=== PATIENT | female | born 1985 | race African-American/Black ===

== ENCOUNTER 2023-10-29 12:53 | Inpatient (IN) | payer OTHER, SELFPAY ==
[2023-10-29 13:20] VITALS: BP 137/99; PULSE 89; RESP 20; TEMP 36.8; O2SAT 99
--- NOTE | 2023-10-29 13:21 | HO.PM.IMCN ---
History of Present Illness Data of Consult Service Date: 10/29/23 Requesting physician: Jules Le Primary Care Provider: None Physician HPI Reason for consult: medical h&p 38 renato old female with history of pseudotumor cerebri, prediabetes, schizoaffective disorder bipolar type, htn, hx cva, cardiomegaly, who is morbidly obese and a current 1/2-1ppd cigarette smoker admitted to psychiatry with consult placed to hospitalist service for medical H&P. Has pseudotumor cerebri and follows outpt with Dr. Mcdermott in neurology. It does not appear she has been seen by neuro in over 1 year. She reports a constant headache in the occipital area without radiation and has long standing blurred vision. Has been told she has papilledema. Per review of neuro notes, has not been able to toelrate diamox in the past for intracranial pressures. No double vision or loss of vision. No acute changes in symptoms. The patient is not the best historian and requires redirection, very rapid speech, difficulty following commands. She doess smoke 1/2-1ppd cigarettes but states she bradley snot crave ncicotine. Also reports previous inhaled crack cocaine and heroin use. Denies IVDA. Review of Systems Review of Systems: General: No fevers, malaise, unintentional weight loss HEENT: +blurred vision, +pailledema. No diplopia. No sore throat, nasal congestion, rhinorrhea, sinus pain, ear pain Cardiovascular: No chest pain, palpitations, or leg edema Respiratory: No shortness of breath, wheezing, cough GI: No abdominal pain, nausea, vomiting, diarrhea, constipation, melena, hematochezia : No dysuria, hematuria, increased urinary frequency, decreased urinary output MSK: No myalgia, back pain Neuro: No weakness, paresthesias. +headache Skin: No rashes or lesions [facility] Medical History Polysubstance abuse Cigarette smoker HTN (hypertension) Morbid obesity Intracranial hypertension Papilledema Pseudotumor cerebri Social History Advance Directives: No Advance Directives Information Provided: No Meds Allergies Allergy/AdvReac Type Severity Reaction Status Date / Time Sulfa (Sulfonamide Allergy Unknown Unverified 10/28/23 21:28 Antibiotics) Active Medications: Current Medications Acetaminophen (Acetaminophen 325 Mg Tablet) 650 mg PO Q6H PRN PRN Reason: Headache/Pain Mild Scale (1-3) Al Hydroxide/Mg Hydroxide (Magnesium Hydrox/Alum Hydrox 30 Ml Oral.Susp) 30 ml PO Q6H PRN PRN Reason: Heartburn/Nausea Hydroxyzine HCl (Hydroxyzine Hcl 25 Mg Tablet) 25 mg PO Q6H PRN PRN Reason: Anxiety Magnesium Hydroxide (Milk Of Magnesia 30 Ml Oral.Susp) 30 ml PO DAILY PRN PRN Reason: Constipation Nicotine (Nicotine 21 Mg Patch.Td24) 21 mg TRANSDERMA DAILY PRN PRN Reason: smoking cessation Nicotine Polacrilex (Nicotine Polacrilex 2 Mg Gum) 4 mg BUCCAL Q2H PRN PRN Reason: Nicotine Cravings Olanzapine (Olanzapine 5 Mg Tablet) 5 mg PO TID PRN PRN Reason: agitation Trazodone HCl (Trazodone Hcl 50 Mg Tablet) 50 mg PO BEDTIME MRX1 PRN PRN Reason: Insomnia Physical Exam Vital Signs and Narrative: Constitutional - Awake and Alert, No apparent distress Eyes - PERRLA, EOMI. No papilledema noted on fundoscopic exam Cardiovascular - S1S2, RRR, No edema Respiratory - Normal lung expansion, Normal respiratory effort, No respiratory distress, CTA bilaterally Gastrointestinal - NT / ND; +BS; No rebound or guarding Extremities - no calf tenderness bilaterally, no swelling Skin - Warm/Dry Neurological - Alert & oriented x3, CN II-XII in tact, difficulty following commands but able to be redirected, 5/5 strength BUE and BLE Psychological - Appropriate affect Assessment and Plan (1) Routine medical exam: Status: Acute Plan 38 year old female with history of pseudotumor cerebri, prediabetes, schizoaffective disorder bipolar type, htn, hx cva, cardiomegaly, who is morbidly obese and a current 1/2-1ppd cigarette smoker admitted to psychiatry with consult placed to hospitalist service for medical H&P. #Schizoaffectvie disorder, bipolar type -plan per psychiatry #Pseudotumor cerebri -appears stable at this time -has chronic headache and blurred vision R eye, no acute change in symptoms. No papilledema on exam -Reviewed [facility] neuro records 07/01: -continue lasix 80mg daily and topomax 25mg BID to help manage/prevent headaches -avoid prn otc meds to no more than 3 times per week to avoid rebound headaches -limit caffeine- no more than 2 cups daily -ensure quality sleep -she is overdue for outpt follow up with neurology (Dr. Mcdermott) and needs appt scheduled herbie. She needs to be seen by ophthamlology -For any worsening symptoms, RECOMMEND NEURO CONSULT #HTN -monitor blood pressures closely, goal <140/90 -continue amlodipine 10mg, losartan 100mg, chlorthalidone 25mg, furosemide 80mg -Monitor lytes #Hypokalemia -K 3.2 while in the ED, repleted -likely r/t diuretic use. -Follow lytes, may need daily K repletion #Morbid obesity -weight loss efforts encouraged #Cigarette smoker -Would recommend gum/lozenges over patches as pt wants to quit and states does not crave nicotine -cessation counseling Thank you for allowing me to participate in this consult. Signing off at this time. Please do not hesitate to call for further questions.
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
[2023-10-29 15:58] VITALS: BMI 51.1
[2023-10-29] MEDS: LORazepam 1 MG TABLET 2 MG PO (16:24)
[2023-10-29] MEDS: OLANZapine ODT 10 MG TAB.RAPDIS 20 MG TRANSLINGU (16:25)
[2023-10-29] MEDS: Acetaminophen 325 MG TABLET 650 MG PO (16:31)
[2023-10-29] MEDS: Loperamide HCl 2 MG CAPSULE PO (17:47)
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
[2023-10-29 23:20] VITALS: RESP 18
[2023-10-30 07:50] VITALS: BP 166/106; PULSE 82; RESP 20; TEMP 36.2; O2SAT 100
[2023-10-30 07:51] LABS: Alanine Aminotransferase 19 U/L (0-31); Albumin Level 3.7 g/dL (3.5-5.0); Alkaline Phosphatase 97 U/L (39-117); Anion Gap 13 (12-20); Aspartate Amino Transferase 19 U/L (5-31); Bilirubin Total 0.3 mg/dL (0.0-1.0); Blood Urea Nitrogen 22 mg/dL (9-16); Calcium 9.5 mg/dL (8.4-10.2); Carbon Dioxide 31 mmol/L (22-29); Chloride 101 mmol/L (96-108); Creatinine Clr Calc Pharmacy 97.4; Estimated Glomerular Filt Rate 50; Glucose Fasting 111 mg/dL (60-99); Potassium 3.9 mmol/L (3.3-5.1); Sodium 141 mmol/L (135-145); Total Protein 8.4 g/dL (6.5-8.0)
[2023-10-30] MEDS: amLODIPine Besylate 10 MG TABLET PO (08:33)
[2023-10-30] MEDS: HaloperidoL 5 MG TABLET PO ×2 (08:33→20:36)
[2023-10-30] MEDS: OLANZapine 10 MG TABLET PO (08:53)
[2023-10-30] MEDS: Acetaminophen 325 MG TABLET 650 MG PO ×2 (08:54→18:53)
[2023-10-30] MEDS: LORazepam 1 MG TABLET 2 MG PO (10:37)
--- NOTE | 2023-10-30 13:17 | P.PNPSI_ITS ---
Subjective Subjective Date of Service: 10/30/23 Reason For Visit: Schizophrenia spectrum disorder Subjective Notes: Conditional Voluntary Interim History: Pt slept most of the night. She was sleeping by the time this resume writer approached her several times in the morning. At this moment, it is felt that sleeping may be more therapeutic as she has not slept for several days. Medication Compliance: Yes Review of Systems Review of Systems General: No fevers, malaise, unintentional weight loss HEENT: +blurred vision, +pailledema. No diplopia. No sore throat, nasal congestion, rhinorrhea, sinus pain, ear pain Cardiovascular: No chest pain, palpitations, or leg edema Respiratory: No shortness of breath, wheezing, cough GI: No abdominal pain, nausea, vomiting, diarrhea, constipation, melena, hematochezia : No dysuria, hematuria, increased urinary frequency, decreased urinary output MSK: No myalgia, back pain Neuro: No weakness, paresthesias. +headache Skin: No rashes or lesions Mental Status Exam Mental Status Exam Narrative: Pt asleep. Diagnostics Vital Signs (24Hr): Vital Signs - 24 hr 10/29/23 13:20 10/29/23 23:20 10/30/23 07:50 Temperature 98.3 F 97.2 F Pulse Rate 89 82 Respiratory Rate 20 18 20 Blood Pressure 137/99 H 166/106 H Pulse Oximetry 99 100 Oxygen Delivery Method Room Air Room Air BMI result Body Mass Index 51.1 Labs 10/30/23 07:17 Labs: Laboratory Results - last 48 hr 10/30/23 07:17 Sodium 141 Potassium 3.9 Chloride 101 Carbon Dioxide 31 H Anion Gap 13 BUN 22 H Creatinine 1.20 Estim Creat Clear Calc 97.4 Estimated GFR 50 Fasting Glucose 111 H Calcium 9.5 Total Bilirubin 0.3 AST 19 ALT 19 Alkaline Phosphatase 97 Total Protein 8.4 H Albumin 3.7 Medications Medications Current Medications Acetaminophen (Acetaminophen 325 Mg Tablet) 650 mg PO Q6H PRN PRN Reason: Headache/Pain Mild Scale (1-3) Last Admin: 10/30/23 08:54 Dose: 650 mg Al Hydroxide/Mg Hydroxide (Magnesium Hydrox/Alum Hydrox 30 Ml Oral.Susp) 30 ml PO Q6H PRN PRN Reason: Heartburn/Nausea Amlodipine Besylate (Amlodipine Besylate 10 Mg Tablet) 10 mg PO DAILY VERNON; Protocol Last Admin: 10/30/23 08:33 Dose: 10 mg Haloperidol (Haloperidol 5 Mg Tablet) 5 mg PO BID VERNON Last Admin: 10/30/23 08:33 Dose: 5 mg Hydroxyzine HCl (Hydroxyzine Hcl 25 Mg Tablet) 25 mg PO Q6H PRN PRN Reason: Anxiety Loperamide HCl (Loperamide Hcl 2 Mg Capsule) 2 mg PO Q6H PRN PRN Reason: Loose Stool Last Admin: 10/29/23 17:47 Dose: 2 mg Lorazepam (Lorazepam 1 Mg Tablet) 2 mg PO Q6H PRN PRN Reason: severe anxiety/agitation Last Admin: 10/30/23 10:37 Dose: 2 mg Magnesium Hydroxide (Milk Of Magnesia 30 Ml Oral.Susp) 30 ml PO DAILY PRN PRN Reason: Constipation Nicotine (Nicotine 21 Mg Patch.Td24) 21 mg TRANSDERMA DAILY PRN PRN Reason: smoking cessation Nicotine Polacrilex (Nicotine Polacrilex 2 Mg Gum) 4 mg BUCCAL Q2H PRN PRN Reason: Nicotine Cravings Olanzapine (Olanzapine 10 Mg Tablet) 10 mg PO Q6H PRN PRN Reason: agitation Last Admin: 10/30/23 08:53 Dose: 10 mg Trazodone HCl (Trazodone Hcl 50 Mg Tablet) 50 mg PO BEDTIME PRN PRN Reason: Insomnia Allergies Allergies Allergy/AdvReac Type Severity Reaction Status Date / Time Sulfa (Sulfonamide Allergy Unknown Unverified 10/28/23 21:28 Antibiotics) Assessment & Plan Assessment & Plan (1) Schizoaffective disorder: Status: Acute Code(s): F25.9 - Schizoaffective disorder, unspecified Plan Ms. Chatman is a 38 year-old woman with hx of schizoaffective disorder, bipolar type who self presented to [facility] ED reporting increase paranoia towards neighbors, hearing voices and not sleeping. Utox was negative. She had been on abilify which pt reports not effective. We discussed risks, benefits and alternative treatment options. We discussed combination of mood stabilizer with antipsychotic. She agrees to try low dose haldol. Renal function with some degree of impairment- caution about starting lithium. She declined depakote. May consider Tegretol- pt wants to think about it. PLAN 1. Admit to M3, CV, 15 minutes checks for safety 2. Start haldol 5mg po BID 3. PRN olanzapine 10mg po q6h for agitation with ativan 2mg po q6h prn--> may decrease as pt more stable 4. Obtain collateral information 5. Aftercare planning. Reason for continued inpatient stay Substantial Risk for: inability to function Time Spent With Patient Time: Total time managing care of this patient today ____ minutes.
[2023-10-30 19:30] VITALS: BP 176/113; PULSE 91; RESP 20; TEMP 36.8; O2SAT 98
[2023-10-30 20:31] LABS: B Type Natriuretic Peptide < 10 pg/mL (<100)
[2023-10-30] MEDS: Losartan Potassium 50 MG TABLET 100 MG PO (20:35)
[2023-10-31] MEDS: Nicotine 21 MG PATCH.TD24 TRANSDERMA ×2 (03:41→11:08)
[2023-10-31 07:30] VITALS: BP 196/107; PULSE 94; RESP 16; TEMP 36.8; O2SAT 97
[2023-10-31 08:10] VITALS: BP 162/106
[2023-10-31] MEDS: amLODIPine Besylate 10 MG TABLET PO (08:13)
[2023-10-31] MEDS: HaloperidoL 5 MG TABLET PO ×2 (08:13→21:38)
[2023-10-31] MEDS: Acetaminophen 325 MG TABLET 650 MG PO ×2 (08:14→22:15)
[2023-10-31 11:20] VITALS: BP 182/109; PULSE 82
[2023-10-31] MEDS: hydroCHLOROthiazide 25 MG TABLET PO (11:22)
[2023-10-31] MEDS: QUEtiapine Fumarate 50 MG TABLET PO (11:22)
[2023-10-31] MEDS: metFORMIN HCl ER 500 MG TAB.ER.24H PO (11:22)
[2023-10-31] MEDS: Topiramate 25 MG TABLET PO ×2 (11:23→21:38)
[2023-10-31] MEDS: Furosemide 40 MG TABLET 80 MG PO (11:23)
[2023-10-31] MEDS: hydrOXYzine HCL 50 MG TABLET PO (11:23)
[2023-10-31] MEDS: carBAMazepine ER 100 MG TAB.ER.12H PO ×2 (11:33→21:37)
[2023-10-31 12:29] VITALS: BP 154/97; PULSE 84
--- NOTE | 2023-10-31 15:06 | HO.PSYCHPN ---
Subjective Subjective Date of Service: 10/31/23 Reason For Visit: Schizophrenia spectrum disorder Interim History: calm, cooperative. acknowledges sowmya. agreeable to start tegretol. med rec reviewed, meds prescribed. per staff, poor sleep LATHE MACHINIST, has been sleeping a lot since arrival. taking meds and meals. h/o chronic hypokalemia. Mental Status Exam Mental Status Exam Narrative: Appearance: scrubs, adequately groomed Behavior: hyperactive but engageable Speech: hyperverbal, redirectable, spontaneous TP: tangential TC: no delusions or paranoia expressed Mood: not assessed Affect: normo-intense, non-labile SI: none expressed HI: none expressed VH/AH: none expressed Insight/judgment: fair x 2 Memory/cog: alert, oriented x 3. not formally tested. Diagnostics Vital Signs (24Hr): Vital Signs - 24 hr 10/30/23 19:30 10/31/23 07:30 10/31/23 08:10 Temperature 98.2 F 98.3 F Pulse Rate 91 94 Respiratory Rate 20 16 Blood Pressure 176/113 H 196/107 H 162/106 H Pulse Oximetry 98 97 Oxygen Delivery Method Room Air Room Air 10/31/23 11:20 10/31/23 12:29 Temperature Pulse Rate 82 84 Respiratory Rate Blood Pressure 182/109 H 154/97 H Pulse Oximetry Oxygen Delivery Method BMI result Body Mass Index 51.1 Labs 10/30/23 07:17 Labs: Laboratory Results - last 48 hr 10/30/23 10/30/23 07:17 20:06 Sodium 141 Potassium 3.9 Chloride 101 Carbon Dioxide 31 H Anion Gap 13 BUN 22 H Creatinine 1.20 Estim Creat Clear Calc 97.4 Estimated GFR 50 Fasting Glucose 111 H Calcium 9.5 Total Bilirubin 0.3 AST 19 ALT 19 Alkaline Phosphatase 97 B-Natriuretic Peptide < 10 Total Protein 8.4 H Albumin 3.7 Medications Medications Current Medications Acetaminophen (Acetaminophen 325 Mg Tablet) 650 mg PO Q6H PRN PRN Reason: Headache/Pain Mild Scale (1-3) Last Admin: 10/31/23 08:14 Dose: 650 mg Al Hydroxide/Mg Hydroxide (Magnesium Hydrox/Alum Hydrox 30 Ml Oral.Susp) 30 ml PO Q6H PRN PRN Reason: Heartburn/Nausea Amlodipine Besylate (Amlodipine Besylate 10 Mg Tablet) 10 mg PO DAILY VERNON; Protocol Last Admin: 10/31/23 08:13 Dose: 10 mg Benztropine Mesylate (Benztropine Mesylate 1 Mg Tablet) 1 mg PO BEDTIME PRN PRN Reason: muscle twitching Carbamazepine (Carbamazepine Er 100 Mg Tab.Er.12h) 100 mg PO BID [facility] Last Admin: 10/31/23 11:33 Dose: 100 mg Furosemide (Furosemide 40 Mg Tablet) 80 mg PO DAILY VERNON; Protocol Last Admin: 10/31/23 11:23 Dose: 80 mg Haloperidol (Haloperidol 5 Mg Tablet) 5 mg PO BID VERNON Last Admin: 10/31/23 08:13 Dose: 5 mg Hydrochlorothiazide (Hydrochlorothiazide 25 Mg Tablet) 25 mg PO DAILY [facility] Last Admin: 10/31/23 11:22 Dose: 25 mg Hydroxyzine HCl (Hydroxyzine Hcl 25 Mg Tablet) 25 mg PO Q6H PRN PRN Reason: Anxiety Hydroxyzine HCl (Hydroxyzine Hcl 50 Mg Tablet) 100 mg PO BEDTIME VERNON Hydroxyzine HCl (Hydroxyzine Hcl 50 Mg Tablet) 50 mg PO DAILY [facility] Last Admin: 10/31/23 11:23 Dose: 50 mg Loperamide HCl (Loperamide Hcl 2 Mg Capsule) 2 mg PO Q6H PRN PRN Reason: Loose Stool Last Admin: 10/29/23 17:47 Dose: 2 mg Lorazepam (Lorazepam 1 Mg Tablet) 2 mg PO Q6H PRN PRN Reason: severe anxiety/agitation Last Admin: 10/30/23 10:37 Dose: 2 mg Losartan Potassium (Losartan Potassium 50 Mg Tablet) 100 mg PO BEDTIME VERNON; Protocol Last Admin: 10/30/23 20:35 Dose: 100 mg Magnesium Hydroxide (Milk Of Magnesia 30 Ml Oral.Susp) 30 ml PO DAILY PRN PRN Reason: Constipation Metformin HCl (Metformin Hcl Er 500 Mg Tab.Er.24h) 500 mg PO DAILY [facility] Last Admin: 10/31/23 11:22 Dose: 500 mg Multi-Ingred Cream/Lotion/Oil/Oint (Mineral Oil/Petrolatum,White 106 Gm Tube) 1 appl TOPICAL BEDTIME VERNON; Protocol Nicotine (Nicotine 21 Mg Patch.Td24) 21 mg TRANSDERMA DAILY PRN PRN Reason: smoking cessation Last Admin: 10/31/23 11:08 Dose: 21 mg Nicotine Polacrilex (Nicotine Polacrilex 2 Mg Gum) 4 mg BUCCAL Q2H PRN PRN Reason: Nicotine Cravings Olanzapine (Olanzapine 10 Mg Tablet) 10 mg PO Q6H PRN PRN Reason: agitation Last Admin: 10/30/23 08:53 Dose: 10 mg Quetiapine Fumarate (Quetiapine Fumarate 50 Mg Tablet) 50 mg PO DAILY [facility] Last Admin: 10/31/23 11:22 Dose: 50 mg Quetiapine Fumarate (Quetiapine Fumarate 400 Mg Tablet) 400 mg PO BEDTIME [facility] Topiramate (Topiramate 25 Mg Tablet) 25 mg PO BID [facility] Last Admin: 10/31/23 11:23 Dose: 25 mg Trazodone HCl (Trazodone Hcl 50 Mg Tablet) 50 mg PO BEDTIME PRN PRN Reason: Insomnia Allergies Allergies Allergy/AdvReac Type Severity Reaction Status Date / Time Sulfa (Sulfonamide Allergy Unknown Unverified 10/28/23 21:28 Antibiotics) Assessment & Plan Assessment & Plan (1) Schizoaffective disorder: Status: Acute Code(s): F25.9 - Schizoaffective disorder, unspecified Plan Ms. Chatman is a 38 year-old woman with hx of schizoaffective disorder, bipolar type who self presented to [facility] ED reporting increase paranoia towards neighbors, hearing voices and not sleeping. Utox was negative. She had been on abilify which pt reports not effective. We discussed risks, benefits and alternative treatment options. We discussed combination of mood stabilizer with antipsychotic. She agrees to try low dose haldol. Renal function with some degree of impairment- caution about starting lithium. She declined depakote. May consider Tegretol- pt wants to think about it. PLAN 1. Admit to M3, CV, 15 minutes checks for safety 2. Start haldol 5mg po BID 3. PRN olanzapine 10mg po q6h for agitation with ativan 2mg po q6h prn--> may decrease as pt more stable 4. Obtain collateral information 5. Aftercare planning. 10/31: less labile/pressured/loud than day of admission. agreeable to trial of tegretol, will start today at 100 BID, as seroquel likely to lead to increased serum levels of tegretol. will also have to watch for antipsychotic efficacy, as tegretol will lead to much reduced serum levels of seroquel. may need to transition over to haldol or olanzapine entirely. Reason for continued inpatient stay Substantial Risk for: inability to function and rapid decompensation Time Spent With Patient Time: Total time managing care of this patient today __25__ minutes.
[2023-10-31] MEDS: hydrOXYzine HCL 25 MG TABLET PO (16:40)
[2023-10-31] MEDS: Loperamide HCl 2 MG CAPSULE PO (17:24)
[2023-10-31 19:20] VITALS: PULSE 100; RESP 16; TEMP 37.2
[2023-10-31 21:30] VITALS: BP 139/85; PULSE 75; RESP 16; TEMP 36.9; O2SAT 94
[2023-10-31] MEDS: hydrOXYzine HCL 50 MG TABLET 100 MG PO (21:37)
[2023-10-31] MEDS: Losartan Potassium 50 MG TABLET 100 MG PO (21:37)
[2023-10-31] MEDS: QUEtiapine Fumarate 400 MG TABLET PO (21:37)
[2023-10-31] MEDS: LORazepam 1 MG TABLET 2 MG PO (22:16)
[2023-11-01] MEDS: carBAMazepine ER 100 MG TAB.ER.12H PO ×2 (08:34→21:46)
[2023-11-01] MEDS: hydroCHLOROthiazide 25 MG TABLET PO (08:35)
[2023-11-01] MEDS: metFORMIN HCl ER 500 MG TAB.ER.24H PO (08:35)
[2023-11-01] MEDS: amLODIPine Besylate 10 MG TABLET PO (08:35)
[2023-11-01] MEDS: Furosemide 40 MG TABLET 80 MG PO (08:35)
[2023-11-01] MEDS: Topiramate 25 MG TABLET PO ×2 (08:36→21:46)
[2023-11-01] MEDS: HaloperidoL 5 MG TABLET PO ×2 (08:36→21:45)
[2023-11-01] MEDS: QUEtiapine Fumarate 50 MG TABLET PO (08:36)
[2023-11-01] MEDS: hydrOXYzine HCL 50 MG TABLET PO (08:37)
[2023-11-01 09:38] VITALS: BP 139/92; PULSE 72; RESP 18; TEMP 36.6; O2SAT 100
--- NOTE | 2023-11-01 14:44 | PC.NURSE ---
Submitted 3 day notice, up on Tuesday11/04/22. Treatment team notified.
--- NOTE | 2023-11-01 15:12 | P.PNPSI_ITS ---
Subjective Subjective Date of Service: 11/01/23 Reason For Visit: Schizophrenia spectrum disorder Interim History: appearing quite sedated today. rousable to voice. no complaints or requests. per staff, dep 5 anx 10. no groups. submitted 3-day notice. Mental Status Exam Mental Status Exam Narrative: Appearance: scrubs, adequately groomed Behavior: somnolent Speech: slowed, sparse TP: linear in brief interaction TC: no delusions or paranoia expressed Mood: drowsy Affect: hypo-intense, non-labile SI: none expressed HI: none expressed VH/AH: none expressed Insight/judgment: fair x 2 Memory/cog: alert, oriented x 3. not formally tested. Diagnostics Vital Signs (24Hr): Vital Signs - 24 hr 10/31/23 19:20 10/31/23 21:30 11/01/23 09:38 Temperature 99.0 F 98.4 F 97.8 F Pulse Rate 100 75 72 Respiratory Rate 16 16 18 Blood Pressure 139/85 139/92 H Pulse Oximetry 94 100 Oxygen Delivery Method Room Air Room Air BMI result Body Mass Index 51.1 Labs 10/30/23 07:17 Labs: Laboratory Results - last 48 hr 10/30/23 20:06 B-Natriuretic Peptide < 10 Medications Medications Current Medications Acetaminophen (Acetaminophen 325 Mg Tablet) 650 mg PO Q6H PRN PRN Reason: Headache/Pain Mild Scale (1-3) Last Admin: 10/31/23 22:15 Dose: 650 mg Al Hydroxide/Mg Hydroxide (Magnesium Hydrox/Alum Hydrox 30 Ml Oral.Susp) 30 ml PO Q6H PRN PRN Reason: Heartburn/Nausea Amlodipine Besylate (Amlodipine Besylate 10 Mg Tablet) 10 mg PO DAILY [facility]; Protocol Last Admin: 11/01/23 08:35 Dose: 10 mg Benztropine Mesylate (Benztropine Mesylate 1 Mg Tablet) 1 mg PO BEDTIME PRN PRN Reason: muscle twitching Carbamazepine (Carbamazepine Er 100 Mg Tab.Er.12h) 100 mg PO BID [facility] Last Admin: 11/01/23 08:34 Dose: 100 mg Furosemide (Furosemide 40 Mg Tablet) 80 mg PO DAILY [facility]; Protocol Last Admin: 11/01/23 08:35 Dose: 80 mg Haloperidol (Haloperidol 5 Mg Tablet) 5 mg PO BID [facility] Last Admin: 11/01/23 08:36 Dose: 5 mg Hydrochlorothiazide (Hydrochlorothiazide 25 Mg Tablet) 25 mg PO DAILY [facility] Last Admin: 11/01/23 08:35 Dose: 25 mg Hydroxyzine HCl (Hydroxyzine Hcl 25 Mg Tablet) 25 mg PO Q6H PRN PRN Reason: Anxiety Last Admin: 10/31/23 16:40 Dose: 25 mg Hydroxyzine HCl (Hydroxyzine Hcl 50 Mg Tablet) 100 mg PO BEDTIME [facility] Last Admin: 10/31/23 21:37 Dose: 100 mg Hydroxyzine HCl (Hydroxyzine Hcl 50 Mg Tablet) 50 mg PO DAILY [facility] Last Admin: 11/01/23 08:37 Dose: 50 mg Loperamide HCl (Loperamide Hcl 2 Mg Capsule) 2 mg PO Q6H PRN PRN Reason: Loose Stool Last Admin: 10/31/23 17:24 Dose: 2 mg Lorazepam (Lorazepam 1 Mg Tablet) 2 mg PO Q6H PRN PRN Reason: severe anxiety/agitation Last Admin: 10/31/23 22:16 Dose: 2 mg Losartan Potassium (Losartan Potassium 50 Mg Tablet) 100 mg PO BEDTIME [facility]; Protocol Last Admin: 10/31/23 21:37 Dose: 100 mg Magnesium Hydroxide (Milk Of Magnesia 30 Ml Oral.Susp) 30 ml PO DAILY PRN PRN Reason: Constipation Metformin HCl (Metformin Hcl Er 500 Mg Tab.Er.24h) 500 mg PO DAILY [facility] Last Admin: 11/01/23 08:35 Dose: 500 mg Multi-Ingred Cream/Lotion/Oil/Oint (Mineral Oil/Petrolatum,White 106 Gm Tube) 1 appl TOPICAL BEDTIME [facility]; Protocol Last Admin: 10/31/23 21:41 Dose: Not Given Nicotine (Nicotine 21 Mg Patch.Td24) 21 mg TRANSDERMA DAILY PRN PRN Reason: smoking cessation Last Admin: 10/31/23 11:08 Dose: 21 mg Nicotine Polacrilex (Nicotine Polacrilex 2 Mg Gum) 4 mg BUCCAL Q2H PRN PRN Reason: Nicotine Cravings Olanzapine (Olanzapine 10 Mg Tablet) 10 mg PO Q6H PRN PRN Reason: agitation Last Admin: 10/30/23 08:53 Dose: 10 mg Quetiapine Fumarate (Quetiapine Fumarate 50 Mg Tablet) 50 mg PO DAILY [facility] Last Admin: 11/01/23 08:36 Dose: 50 mg Quetiapine Fumarate (Quetiapine Fumarate 400 Mg Tablet) 400 mg PO BEDTIME [facility] Last Admin: 10/31/23 21:37 Dose: 400 mg Topiramate (Topiramate 25 Mg Tablet) 25 mg PO BID [facility] Last Admin: 11/01/23 08:36 Dose: 25 mg Trazodone HCl (Trazodone Hcl 50 Mg Tablet) 50 mg PO BEDTIME PRN PRN Reason: Insomnia Allergies Allergies Allergy/AdvReac Type Severity Reaction Status Date / Time Sulfa (Sulfonamide Allergy Intermediate Swelling Unverified 10/31/23 17:27 Antibiotics) Assessment & Plan Assessment & Plan (1) Schizoaffective disorder: Status: Acute Code(s): F25.9 - Schizoaffective disorder, unspecified Plan Ms. Chatman is a 38 year-old woman with hx of schizoaffective disorder, bipolar type who self presented to [facility] ED reporting increase paranoia towards neighbors, hearing voices and not sleeping. Utox was negative. She had been on abilify which pt reports not effective. We discussed risks, benefits and alternative treatment options. We discussed combination of mood stabilizer with antipsychotic. She agrees to try low dose haldol. Renal function with some degree of impairment- caution about starting lithium. She declined depakote. May consider Tegretol- pt wants to think about it. PLAN 1. Admit to M3, CV, 15 minutes checks for safety 2. Start haldol 5mg po BID 3. PRN olanzapine 10mg po q6h for agitation with ativan 2mg po q6h prn--> may decrease as pt more stable 4. Obtain collateral information 5. Aftercare planning. 10/31: less labile/pressured/loud than day of admission. agreeable to trial of tegretol, will start today at 100 BID, as seroquel likely to lead to increased serum levels of tegretol. will also have to watch for antipsychotic efficacy, as tegretol will lead to much reduced serum levels of seroquel. may need to transition over to haldol or olanzapine entirely. 11/01: appears sedated. likely related to addition of tegretol, even at low dose of 100 BID. will continue to monitor as it will take some weeks for tegretol to come to a steady state due to interaction with seroquel. 3-day notice placed, up tuesday. Reason for continued inpatient stay Substantial Risk for: inability to function and rapid decompensation Time Spent With Patient Time: Total time managing care of this patient today ____ minutes.
[2023-11-01] MEDS: hydrOXYzine HCL 50 MG TABLET 100 MG PO (21:45)
[2023-11-01] MEDS: QUEtiapine Fumarate 400 MG TABLET PO (21:45)
[2023-11-01] MEDS: Losartan Potassium 50 MG TABLET 100 MG PO (21:45)
[2023-11-02 06:00] VITALS: BP 138/79; PULSE 85; RESP 18; TEMP 36.8; O2SAT 97
[2023-11-02] MEDS: metFORMIN HCl ER 500 MG TAB.ER.24H PO (08:26)
[2023-11-02] MEDS: hydroCHLOROthiazide 25 MG TABLET PO (08:26)
[2023-11-02] MEDS: hydrOXYzine HCL 50 MG TABLET PO (08:26)
[2023-11-02] MEDS: Furosemide 40 MG TABLET 80 MG PO (08:26)
[2023-11-02] MEDS: amLODIPine Besylate 10 MG TABLET PO (08:26)
[2023-11-02] MEDS: HaloperidoL 5 MG TABLET PO ×2 (08:26→20:18)
[2023-11-02] MEDS: carBAMazepine ER 100 MG TAB.ER.12H PO ×2 (08:27→20:18)
[2023-11-02] MEDS: QUEtiapine Fumarate 50 MG TABLET PO (08:27)
[2023-11-02] MEDS: Topiramate 25 MG TABLET PO ×2 (08:27→20:18)
[2023-11-02 08:39] LABS: Glucose, Whole Blood 114 mg/dL (60-115)
[2023-11-02] MEDS: OLANZapine 10 MG TABLET PO (10:29)
--- NOTE | 2023-11-02 10:39 | P.PNPSI_ITS ---
Subjective Subjective Date of Service: 11/02/23 Reason For Visit: Schizophrenia spectrum disorder Subjective Notes: Conditional Voluntary and 3 Day Interim History: Pt slept through the night. She was agitated in the evening and smashed phone. She has been taking medications. She was yelling at nurses station asking when will she be discharged. When this instructional writer met with pt, pt presents as calm. She reports she feels better than when she came in that she feels more rested. She denies SI/HI. Overt delusional statements but still somewhat guarded and to some extend not fully forthcoming with delusional content. Review of Systems Review of Systems General: No fevers, malaise, unintentional weight loss HEENT: +blurred vision, +pailledema. No diplopia. No sore throat, nasal congestion, rhinorrhea, sinus pain, ear pain Cardiovascular: No chest pain, palpitations, or leg edema Respiratory: No shortness of breath, wheezing, cough GI: No abdominal pain, nausea, vomiting, diarrhea, constipation, melena, hematochezia : No dysuria, hematuria, increased urinary frequency, decreased urinary output MSK: No myalgia, back pain Neuro: No weakness, paresthesias. +headache Skin: No rashes or lesions Mental Status Exam Mental Status Exam Narrative: Appearance: scrubs, adequately groomed Behavior: somnolent Speech: slowed, sparse TP: linear in brief interaction TC: no delusions or paranoia expressed Mood: drowsy Affect: hypo-intense, non-labile SI: none expressed HI: none expressed VH/AH: none expressed Insight/judgment: fair x 2 Memory/cog: alert, oriented x 3. not formally tested. Diagnostics Vital Signs (24Hr): Vital Signs - 24 hr 11/02/23 06:00 Temperature 98.2 F Pulse Rate 85 Respiratory Rate 18 Blood Pressure 138/79 Pulse Oximetry 97 Oxygen Delivery Method Room Air BMI result Body Mass Index 51.1 Labs 10/30/23 07:17 Labs: Laboratory Results - last 48 hr 11/02/23 08:34 POC Glucose 114 Medications Medications Current Medications Acetaminophen (Acetaminophen 325 Mg Tablet) 650 mg PO Q6H PRN PRN Reason: Headache/Pain Mild Scale (1-3) Last Admin: 10/31/23 22:15 Dose: 650 mg Al Hydroxide/Mg Hydroxide (Magnesium Hydrox/Alum Hydrox 30 Ml Oral.Susp) 30 ml PO Q6H PRN PRN Reason: Heartburn/Nausea Amlodipine Besylate (Amlodipine Besylate 10 Mg Tablet) 10 mg PO DAILY [facility]; Protocol Last Admin: 11/02/23 08:26 Dose: 10 mg Benztropine Mesylate (Benztropine Mesylate 1 Mg Tablet) 1 mg PO BEDTIME PRN PRN Reason: muscle twitching Carbamazepine (Carbamazepine Er 100 Mg Tab.Er.12h) 100 mg PO BID [facility] Last Admin: 11/02/23 08:27 Dose: 100 mg Furosemide (Furosemide 40 Mg Tablet) 80 mg PO DAILY [facility]; Protocol Last Admin: 11/02/23 08:26 Dose: 80 mg Haloperidol (Haloperidol 5 Mg Tablet) 5 mg PO BID [facility] Last Admin: 11/02/23 08:26 Dose: 5 mg Hydrochlorothiazide (Hydrochlorothiazide 25 Mg Tablet) 25 mg PO DAILY [facility] Last Admin: 11/02/23 08:26 Dose: 25 mg Hydroxyzine HCl (Hydroxyzine Hcl 25 Mg Tablet) 25 mg PO Q6H PRN PRN Reason: Anxiety Last Admin: 10/31/23 16:40 Dose: 25 mg Hydroxyzine HCl (Hydroxyzine Hcl 50 Mg Tablet) 100 mg PO BEDTIME [facility] Last Admin: 11/01/23 21:45 Dose: 100 mg Hydroxyzine HCl (Hydroxyzine Hcl 50 Mg Tablet) 50 mg PO DAILY [facility] Last Admin: 11/02/23 08:26 Dose: 50 mg Loperamide HCl (Loperamide Hcl 2 Mg Capsule) 2 mg PO Q6H PRN PRN Reason: Loose Stool Last Admin: 10/31/23 17:24 Dose: 2 mg Lorazepam (Lorazepam 1 Mg Tablet) 2 mg PO Q6H PRN PRN Reason: severe anxiety/agitation Last Admin: 10/31/23 22:16 Dose: 2 mg Losartan Potassium (Losartan Potassium 50 Mg Tablet) 100 mg PO BEDTIME [facility]; Protocol Last Admin: 11/01/23 21:45 Dose: 100 mg Magnesium Hydroxide (Milk Of Magnesia 30 Ml Oral.Susp) 30 ml PO DAILY PRN PRN Reason: Constipation Metformin HCl (Metformin Hcl Er 500 Mg Tab.Er.24h) 500 mg PO DAILY [facility] Last Admin: 11/02/23 08:26 Dose: 500 mg Multi-Ingred Cream/Lotion/Oil/Oint (Mineral Oil/Petrolatum,White 106 Gm Tube) 1 appl TOPICAL BEDTIME [facility]; Protocol Last Admin: 11/01/23 21:54 Dose: Not Given Nicotine (Nicotine 21 Mg Patch.Td24) 21 mg TRANSDERMA DAILY PRN PRN Reason: smoking cessation Last Admin: 10/31/23 11:08 Dose: 21 mg Nicotine Polacrilex (Nicotine Polacrilex 2 Mg Gum) 4 mg BUCCAL Q2H PRN PRN Reason: Nicotine Cravings Olanzapine (Olanzapine 10 Mg Tablet) 10 mg PO Q6H PRN PRN Reason: agitation Last Admin: 11/02/23 10:29 Dose: 10 mg Quetiapine Fumarate (Quetiapine Fumarate 50 Mg Tablet) 50 mg PO DAILY [facility] Last Admin: 11/02/23 08:27 Dose: 50 mg Quetiapine Fumarate (Quetiapine Fumarate 400 Mg Tablet) 400 mg PO BEDTIME [facility] Last Admin: 11/01/23 21:45 Dose: 400 mg Topiramate (Topiramate 25 Mg Tablet) 25 mg PO BID [facility] Last Admin: 11/02/23 08:27 Dose: 25 mg Trazodone HCl (Trazodone Hcl 50 Mg Tablet) 50 mg PO BEDTIME PRN PRN Reason: Insomnia Allergies Allergies Allergy/AdvReac Type Severity Reaction Status Date / Time Sulfa (Sulfonamide Allergy Intermediate Swelling Unverified 10/31/23 17:27 Antibiotics) Assessment & Plan Assessment & Plan (1) Schizoaffective disorder: Status: Acute Code(s): F25.9 - Schizoaffective disorder, unspecified Plan Ms. Chatman is a 38 year-old woman with hx of schizoaffective disorder, bipolar type who self presented to [facility] ED reporting increase paranoia towards neighbors, hearing voices and not sleeping. Utox was negative. She had been on abilify which pt reports not effective. We discussed risks, benefits and alternative treatment options. We discussed combination of mood stabilizer with antipsychotic. She agrees to try low dose haldol. Renal function with some degree of impairment- caution about starting lithium. She declined depakote. May consider Tegretol- pt wants to think about it. PLAN 1. Admit to M3, CV, 15 minutes checks for safety 2. Start haldol 5mg po BID 3. PRN olanzapine 10mg po q6h for agitation with ativan 2mg po q6h prn--> may decrease as pt more stable 4. Obtain collateral information 5. Aftercare planning. 10/31: less labile/pressured/loud than day of admission. agreeable to trial of tegretol, will start today at 100 BID, as seroquel likely to lead to increased serum levels of tegretol. will also have to watch for antipsychotic efficacy, as tegretol will lead to much reduced serum levels of seroquel. may need to transition over to haldol or olanzapine entirely. 11/01: appears sedated. likely related to addition of tegretol, even at low dose of 100 BID. will continue to monitor as it will take some weeks for tegretol to come to a steady state due to interaction with seroquel. 3-day notice placed, up tuesday. 11/02 continue tx. Reason for continued inpatient stay Substantial Risk for: inability to function Time Spent With Patient Time: Total time managing care of this patient today ____ minutes.
[2023-11-02] MEDS: LORazepam 1 MG TABLET PO (11:36)
[2023-11-02 20:05] VITALS: BP 136/90; PULSE 81; RESP 18; TEMP 36.7; O2SAT 99
[2023-11-02] MEDS: Losartan Potassium 50 MG TABLET 100 MG PO (20:18)
[2023-11-02] MEDS: QUEtiapine Fumarate 400 MG TABLET PO (20:18)
[2023-11-02] MEDS: hydrOXYzine HCL 50 MG TABLET 100 MG PO (20:19)
[2023-11-02] MEDS: Mineral Oil/Petrolatum,White 106 GM Tube 1 APPL TOPICAL (20:22)
[2023-11-03 08:53] VITALS: BP 131/86; PULSE 74; RESP 18; TEMP 36.8; O2SAT 98
[2023-11-03] MEDS: QUEtiapine Fumarate 50 MG TABLET PO (08:59)
[2023-11-03] MEDS: amLODIPine Besylate 10 MG TABLET PO (08:59)
[2023-11-03] MEDS: hydrOXYzine HCL 50 MG TABLET PO (08:59)
[2023-11-03] MEDS: hydroCHLOROthiazide 25 MG TABLET PO (08:59)
[2023-11-03] MEDS: HaloperidoL 5 MG TABLET PO ×2 (09:00→21:39)
[2023-11-03] MEDS: metFORMIN HCl ER 500 MG TAB.ER.24H PO (09:00)
[2023-11-03] MEDS: carBAMazepine ER 100 MG TAB.ER.12H PO ×2 (09:00→21:40)
[2023-11-03] MEDS: Furosemide 40 MG TABLET 80 MG PO (09:00)
[2023-11-03] MEDS: Topiramate 25 MG TABLET PO ×2 (09:00→21:40)
[2023-11-03 09:04] LABS: Glucose, Whole Blood 112 mg/dL (60-115)
[2023-11-03] MEDS: LORazepam 1 MG TABLET PO (15:40)
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
[2023-11-03 20:08] VITALS: BP 132/79; PULSE 78; RESP 18; TEMP 36.9; O2SAT 96
[2023-11-03 20:23] LABS: MANUAL DIFF FLAG NO
[2023-11-03 20:25] LABS: Basophils Percent Auto 0.4 % (0-2); Eosinophils Absolute Auto 0.2 X10*3/uL (0.0-0.4); Eosinophils Percent Auto 2.8 % (0-4); Hematocrit 36.4 % (37.0-47.0); Hemoglobin 12.1 g/dl (12.0-16.0); Imm Gran Abs Auto 0.02 X10*3/uL (0.00-0.03); Imm Gran Pct Auto 0.2 % (0.0-0.4); Lymphocytes Absolute Auto 3.4 X10*3/uL (1.2-4.9); Lymphocytes Percent Auto 41.5 % (20-40); Mean Corpuscular HGB Conc 33.2 g/dl (31.0-35.0); Mean Corpuscular Volume 84.3 fL (80.0-98.0); Mean Platelet Volume 9.5 fL (9.4-12.3); Monocytes Absolute Auto 0.6 X10*3/uL (0.1-1.2); Monocytes Percent Auto 6.7 % (2-11); Neutrophils Percent Auto 48.4 % (45-73); Platelet Count 316 X10*3/uL (160-400); Red Blood Count 4.32 X10*6/uL (4.20-5.50); Red Cell Distribution Width 13.3 % (11.0-16.0); White Blood Count 8.2 X10*3/uL (4.8-10.8)
[2023-11-03 20:56] LABS: Alanine Aminotransferase 19 U/L (0-31); Albumin Level 3.4 g/dL (3.5-5.0); Alkaline Phosphatase 98 U/L (39-117); Anion Gap 13 (12-20); Bilirubin Direct < 0.2 mg/dL (0.0-0.5); Bilirubin Total 0.1 mg/dL (0.0-1.0); Blood Urea Nitrogen 25 mg/dL (9-16); Calcium 9.3 mg/dL (8.4-10.2); Carbon Dioxide 35 mmol/L (22-29); Chloride 94 mmol/L (96-108); Cholesterol 162 mg/dL (<200); Creatinine Clr Calc Pharmacy 83.5; Estimated Glomerular Filt Rate 42; Glucose Random 135 mg/dL (60-115); HDL Cholesterol 34 mg/dL (>40); LDL Cholesterol Calculated 58 mg/dL (<100); Sodium 139 mmol/L (135-145); Total Protein 7.6 g/dL (6.5-8.0); Triglycerides 354 mg/dL (<150)
[2023-11-03 21:02] LABS: Aspartate Amino Transferase 16 U/L (5-31)
[2023-11-03 21:05] LABS: Carbamazepine Tegretol 2.1 mcg/mL (5.0-12.0)
[2023-11-03 21:06] LABS: Potassium 2.9 mmol/L (3.3-5.1)
[2023-11-03] MEDS: Losartan Potassium 50 MG TABLET 100 MG PO (21:39)
[2023-11-03] MEDS: QUEtiapine Fumarate 400 MG TABLET PO (21:39)
[2023-11-03] MEDS: hydrOXYzine HCL 50 MG TABLET 100 MG PO (21:40)
[2023-11-03] MEDS: Acetaminophen 325 MG TABLET 650 MG PO (21:40)
[2023-11-03] MEDS: Mineral Oil/Petrolatum,White 106 GM Tube 1 APPL TOPICAL (21:42)
[2023-11-03] MEDS: Potassium Chloride ER 20 MEQ TAB.ER.PRT 40 MEQ PO (22:32)
--- NOTE | 2023-11-04 06:31 | PC.NURSE ---
Late entry for 11/03 2199 - Call received from Cassidy in the lab regarding critical lab results: potassium 2.9 and tegretol 2.1. Provider transportation attendant Heike Gurrola made aware.
[2023-11-04 07:02] LABS: Estimated Average Glucose 123 mg/dL; Hemoglobin A1c % 5.9 % (<6.0)
[2023-11-04 08:55] VITALS: BP 131/81; PULSE 81; RESP 18; TEMP 36.4; O2SAT 96
[2023-11-04] MEDS: amLODIPine Besylate 10 MG TABLET PO (08:56)
[2023-11-04] MEDS: QUEtiapine Fumarate 50 MG TABLET PO (08:56)
[2023-11-04] MEDS: HaloperidoL 5 MG TABLET PO (08:57)
[2023-11-04] MEDS: hydroCHLOROthiazide 25 MG TABLET PO (08:57)
[2023-11-04] MEDS: Potassium Chloride ER 20 MEQ TAB.ER.PRT PO (08:57)
[2023-11-04] MEDS: carBAMazepine ER 100 MG TAB.ER.12H PO (08:57)
[2023-11-04 08:58] LABS: Glucose, Whole Blood 165 mg/dL (60-115)
[2023-11-04] MEDS: hydrOXYzine HCL 50 MG TABLET PO (08:58)
[2023-11-04] MEDS: Topiramate 25 MG TABLET PO (08:58)
[2023-11-04] MEDS: metFORMIN HCl ER 500 MG TAB.ER.24H PO (08:58)
== END 2023-11-04 10:50 | disposition home or self-care (01) | DRG 885 ==
PROVIDERS: Psychiatry & Neurology Psychiatry; Social Worker; Admitting Provider Psychiatry & Neurology Psychiatry; Visit Provider Psychiatry & Neurology Psychiatry
DX: F25.0 Schizoaffective disorder, bipolar type (principal); Z68.43 Body mass index [BMI] 50.0-59.9, adult; E66.01 Morbid (severe) obesity due to excess calories; G93.2 Benign intracranial hypertension; E87.6 Hypokalemia; I10 Essential (primary) hypertension; F17.210 Nicotine dependence, cigarettes, uncomplicated; Z71.6 Tobacco abuse counseling; Z79.84 Long term (current) use of oral hypoglycemic drugs; Z79.899 Other long term (current) drug therapy
CPT/HCPCS: 36415; 80048; 80053; 80061; 80076; 80156; 82947; 83036; 83880; 85025

== ENCOUNTER → 2023-10-29 12:53 | Outpatient (BNV) | payer OTHER, SELFPAY | PROVIDERS: Admitting Provider Psychiatry & Neurology Psychiatry; Visit Provider Social Worker | DX: F25.0 Schizoaffective disorder, bipolar type (principal) | CPT/HCPCS: 90792; 99231; 99232; 99239 ==

== ENCOUNTER → 2023-10-29 12:53 | Outpatient (BNV) | payer OTHER, SELFPAY | PROVIDERS: Admitting Provider Psychiatry & Neurology Psychiatry; Visit Provider Physician Assistant | DX: Z02.2 Encounter for examination for admission to residential institution (principal) | CPT/HCPCS: 99429 ==